=== PATIENT | male | born 1960 | race Hispanic/Latino ===

== ENCOUNTER 2024-02-19 20:13 | Observation (INO) | payer BC, MEDICARE ==
[~2024-02-19] VITALS: Ht 170.2 cm; Wt 111.7 kg
[2024-02-19 21:22] LABS: BASOPHILS # (AUTO) 0.03 K/uL (0.00-0.20); BASOPHILS % (AUTO) 0.4 % (0.0-5.0); EOSINOPHILS # (AUTO) 0.14 K/uL (0.00-0.70); HEMATOCRIT 34.8 % (42-54); IMMATURE GRANULOCYTE ABSOLUTE 0.02 K/uL (0-1); LYMPHOCYTES % (AUTO) 28.4 % (21.0-51.0); MEAN CORPUSCULAR HEMOGLOBIN 26.4 pg (27.0-33.0); MEAN CORPUSCULAR HGB CONC 33.6 g/dL (32.0-36.0); MEAN CORPUSCULAR VOLUME 78.6 fL (79-99); MONOCYTES # (AUTO) 0.7 K/uL (0.1-1.0); MONOCYTES % (AUTO) 9.3 % (3.0-13.0); NEUTROPHILS # (AUTO) 4.2 K/uL (1.8-7.7); NEUTROPHILS % (AUTO) 59.6 % (40.0-77.0); PLATELET COUNT (AUTO) 289 K/uL (130-400); RED BLOOD CELL COUNT(AUTO) 4.43 MIL/uL (4.50-6.20); RED CELL DISTRIBUTION WIDTH 13.5 % (11.0-15.5); WHITE BLOOD COUNT (AUTO) 7.1 K/uL (4.8-10.8)
[2024-02-19] MEDS: LACTATED RINGERS 1000ML 1,000 ML IV SCH (21:23)
[2024-02-19 21:40] LABS: ALBUMIN 3.1 g/dL (3.5-5.0); BILIRUBIN,DIRECT 0.1 mg/dL (0.0-0.3); BILIRUBIN,TOTAL 0.3 mg/dL (0.2-1.0); CREATININE 0.8 mg/dL (0.5-1.3); POTASSIUM 3.2 mmol/L (3.5-5.1); TOTAL PROTEIN, SERUM 6.7 g/dL (6.0-8.3)
[2024-02-19] MEDS ORDERED: IOHEXOL 350 MG/ML 100ML INFUS..BTL IV ONE (21:42)
[2024-02-19] MEDS: HYDROMORPHONE 1 MG INJ IVP PRN (22:25)
[2024-02-20] VITALS (9 sets, daily range): BP systolic 123–141; BP diastolic 63–87; PULSE 56–112; RESP 18–24; O2SAT 98–99
[2024-02-20] MEDS: HYDROMORPHONE 0.5 MG SYG (0.5MG/0.5ML) IVP PRN (01:22)
[2024-02-20] MEDS: LACTATED RINGERS 1000ML 1,000 ML IV SCH (01:24)
[2024-02-20] MEDS ORDERED: POTASSIUM CHLORIDE 20MEQ/100ML 100 ML IV PRN ×2 (01:30→18:00)
[2024-02-20] MEDS ORDERED: ONDANSETRON 4MG INJ IV PRN (01:30)
[2024-02-20] MEDS ORDERED: PANT40TA54 PO (02:42)
[2024-02-20] MEDS ORDERED: DICY20TA2 PO (02:42)
[2024-02-20] MEDS ORDERED: ATOR20TA65 PO (02:42)
[2024-02-20] MEDS ORDERED: ONDA-105 PO (02:42)
[2024-02-20] MEDS: LEVOFLOXACIN 500 MG/D5W 100 ML 100 ML IV SCH (02:51)
[2024-02-20 04:15] LABS: BASOPHILS # (AUTO) 0.01 K/uL (0.00-0.20); BASOPHILS % (AUTO) 0.2 % (0.0-5.0); EOSINOPHILS # (AUTO) 0.11 K/uL (0.00-0.70); EOSINOPHILS % (AUTO) 1.8 % (0.0-8.0); HEMATOCRIT 32.8 % (42-54); IMMATURE GRANULOCYTE ABSOLUTE 0.02 K/uL (0-1); LYMPHOCYTES % (AUTO) 33.1 % (21.0-51.0); MEAN CORPUSCULAR HEMOGLOBIN 26.4 pg (27.0-33.0); MEAN CORPUSCULAR HGB CONC 32.6 g/dL (32.0-36.0); MEAN CORPUSCULAR VOLUME 80.8 fL (79-99); MONOCYTES # (AUTO) 0.6 K/uL (0.1-1.0); NEUTROPHILS # (AUTO) 3.4 K/uL (1.8-7.7); NEUTROPHILS % (AUTO) 54.6 % (40.0-77.0); PLATELET COUNT (AUTO) 264 K/uL (130-400); RED BLOOD CELL COUNT(AUTO) 4.06 MIL/uL (4.50-6.20); RED CELL DISTRIBUTION WIDTH 13.7 % (11.0-15.5); WHITE BLOOD COUNT (AUTO) 6.2 K/uL (4.8-10.8)
[2024-02-20 04:34] LABS: HEMOGLOBIN A1C 6.7 % (4.0-6.0)
[2024-02-20 04:43] LABS: ALBUMIN 2.9 g/dL (3.5-5.0); BILIRUBIN,TOTAL 0.5 mg/dL (0.2-1.0); CREATININE 0.8 mg/dL (0.5-1.3); MAGNESIUM 1.8 mg/dL (1.80-2.40); POTASSIUM 3.6 mmol/L (3.5-5.1); TOTAL PROTEIN, SERUM 6.5 g/dL (6.0-8.3)
[2024-02-20] MEDS: MAGNESIUM 2GM PREMIX 50ML 50 ML IV PRN (05:56)
[2024-02-20] MEDS ORDERED: ONDANSETRON HCL PO PRN (09:00)
[2024-02-20] MEDS ORDERED: PANTOPRAZOLE 40 MG TAB DR PO SCH (09:00)
[2024-02-20] MEDS: DICYCLOMINE HCL 20 MG TAB PO SCH (09:00)
[2024-02-20] MEDS: ATORVASTATIN 20 MG TABLET PO SCH (09:00)
[2024-02-20] MEDS: PANTOPRAZOLE 40 MG/VIAL IVP SCH (09:54)
[2024-02-20] MEDS: POTASSIUM CHLORIDE 10% ELIXIR 20 MEQ/15 ML UDCUP PO PRN (17:47)
[2024-02-20] MEDS ORDERED: KCL 20 MEQ ERTAB PO PRN (18:00)
[2024-02-21 04:11] LABS: BASOPHILS # (AUTO) 0.01 K/uL (0.00-0.20); BASOPHILS % (AUTO) 0.2 % (0.0-5.0); HEMATOCRIT 29.9 % (42-54); IMMATURE GRANULOCYTE ABSOLUTE 0.01 K/uL (0-1); LYMPHOCYTES # (AUTO) 1.8 K/uL (1.0-4.8); LYMPHOCYTES % (AUTO) 37.1 % (21.0-51.0); MEAN CORPUSCULAR HEMOGLOBIN 26.4 pg (27.0-33.0); MEAN CORPUSCULAR HGB CONC 33.1 g/dL (32.0-36.0); MEAN CORPUSCULAR VOLUME 79.7 fL (79-99); MONOCYTES # (AUTO) 0.6 K/uL (0.1-1.0); MONOCYTES % (AUTO) 11.6 % (3.0-13.0); NEUTROPHILS # (AUTO) 2.4 K/uL (1.8-7.7); NEUTROPHILS % (AUTO) 48.9 % (40.0-77.0); PLATELET COUNT (AUTO) 261 K/uL (130-400); RED BLOOD CELL COUNT(AUTO) 3.75 MIL/uL (4.50-6.20); RED CELL DISTRIBUTION WIDTH 13.8 % (11.0-15.5); WHITE BLOOD COUNT (AUTO) 4.9 K/uL (4.8-10.8)
[2024-02-21 04:30] VITALS: BP 117/60; PULSE 59; RESP 18
[2024-02-21 04:38] LABS: ALBUMIN 2.8 g/dL (3.5-5.0); BILIRUBIN,TOTAL 0.3 mg/dL (0.2-1.0); CREATININE 0.9 mg/dL (0.5-1.3); POTASSIUM 3.9 mmol/L (3.5-5.1); TOTAL PROTEIN, SERUM 5.9 g/dL (6.0-8.3)
[2024-02-21 08:24] VITALS: BP 121/67; PULSE 56; RESP 17
[2024-02-21 08:30] VITALS: O2SAT 94
[2024-02-21 10:57] VITALS: BP 149/81; PULSE 66; RESP 16
[2024-02-21] MEDS ORDERED: LEVO-70 PO (11:31)
== END 2024-02-21 15:15 | disposition home or self-care (01) ==
LOC: EDH 20:13 → EDHIP 02-20 01:12 → 4AH 02-20 02:10
PROVIDERS: ADMIT Hospitalist; ATTEND Hospitalist
DX: R10.9 Unspecified abdominal pain (principal); C18.9 Malignant neoplasm of colon, unspecified; C78.7 Secondary malignant neoplasm of liver and intrahepatic bile duct; E66.01 Morbid (severe) obesity due to excess calories; D64.9 Anemia, unspecified; E87.6 Hypokalemia; F17.210 Nicotine dependence, cigarettes, uncomplicated; Z79.899 Other long term (current) drug therapy
CPT/HCPCS: 96375 ×2; 99285; 80076; 80048; 85025 ×3; 36415 ×3; 74177; 96376 ×2; 96361 ×2; 96365; 83036; 83735 ×2; 82330; 80053 ×2; 87040 ×2; 74018; 96366; J1170 ×3; Q9967; G0378 ×38; J3475; J1956 ×2; C9113 ×2

== ENCOUNTER 2024-07-20 19:23 | Emergency (ER) | payer BC, MEDICARE ==
[~2024-07-20] VITALS: Ht 170.2 cm; Wt 101.6 kg
[~2024-07-20 19:23] MED LIST: ATOR20TA65 PO; DICY20TA2 PO; LEVO-70 PO; ONDA-105 PO; PANT40TA54 PO
--- NOTE | 2024-07-20 19:25 | NUR ---
UA CUP PROVIDED
--- NOTE | 2024-07-20 19:32 | NUR ---
COVID AND FLU SWABS COLLECTED AND SENT
--- NOTE | 2024-07-20 19:33 | NUR ---
REPORT TO AYO NASCIMENTO. PT WILL GO TO ROOM 1 , ONCE CLEAN
--- NOTE | 2024-07-20 19:48 | ERN ---
ED Note History of Present Illness Stated Complaint: ABD PAIN Chief Complaint: Abdominal Pain Time Seen by MD: 19:28 Dictation: PATIENT IS A 64-YEAR-OLD MALE COMING IN TODAY WITH NAUSEA WITH DIARRHEA AND ABDOMINAL CRAMPING THROUGHOUT FOR THE LAST THREE DAYS. NO FEVER NO CHILLS NO CHEST PAIN NO BACK PAIN NO SOB. HE STATES HIS ONLY HISTORY SURGICALLY IS OF CHOLECYSTECTOMY. Allergies: Coded Allergies: No Known Allergies (Unverified Allergy, Unknown, 02/19/24) Home Meds Active Scripts Levofloxacin (Levofloxacin) 500 Mg Tablet, 500 MG PO DAILY, #7 TAB Prov:DOLORES FOREMANLISA Hannon MECHANICAL ENGINEERING ADVISOR 02/21/24 Reported Medications Dicyclomine HCl (Bentyl) 20 Mg Tab, 1 TAB PO TID 02/20/24 Pantoprazole Sodium (Pantoprazole Sodium) 40 Mg Tablet.dr, 1 TAB PO DAILY 02/20/24 Ondansetron HCl (Ondansetron HCl) 8 Mg Tablet, 1 TAB PO 12H PRN for NAUSEA 02/20/24 Atorvastatin Calcium (Atorvastatin Calcium) 20 Mg Tablet, 1 TAB PO DAILY 02/20/24 Past Medical History Past Medical History: Other Additional Past Medical Hx: HX OF COLON CA, LIVER CANCER Surgical History: Cholecystectomy, Other PSYCH History: no pertinent psych hx RN Note Reviewed/Agreed w/PFSH: Yes Review of System Dictation CONSTITUTIONAL: NEGATIVE EXCEPT FOR HPI HEAD/FACE: NEGATIVE EXCEPT FOR HPI EENT: NEGATIVE EXCEPT FOR HPI RESPIRATORY: NEGATIVE EXCEPT FOR HPI GASTROINTESTINAL/ABDOMINAL: NEGATIVE EXCEPT FOR HPI DIFFUSE ABDOMINAL PAIN W ITH NAUSEA AND DIARRHEA GENITOURINARY: NEGATIVE EXCEPT FOR HPI MUSCULOSKELETAL: NEGATIVE EXCEPT FOR HPI INTEGUMENTARY: NEGATIVE EXCEPT FOR HPI NEUROLOGICAL/PSYCH: NEGATIVE EXCEPT FOR HPI HEMATOLOGIC/LYMPHATIC: NEGATIVE EXCEPT FOR HPI ALL SYSTEMS NEGATIVE, EXCEPT NOTED ABOVE. 13 POINT REVIEW OF SYSTEMS ASSESSED AND ALL NEGATIVE EXCEPT FOR ABOVE. Initial Vital Sign VS Vital Signs Date Time Temp Pulse Resp B/P (MAP) Pulse Ox O2 Delivery O2 Flow Rate FiO2 07/20/24 19:24 97.9 91 20 129/79 97 Room Air 07/20/24 19:56 0 21 Physical Exam Dictation VITAL SIGNS REVIEWED GENERAL APPEARANCE: ALERT, ORIENTED X 3, MILD ACUTE DISTRESS, WELL DEVELOPED, NOURISHED. OBESE HEAD AND FACE: NON-TRAUMATIC. EYES: PERRL, PINK CONJUNCTIVAS, EYELID NO TRAUMA, ANTERIOR CHAMBER WITH ARCUS SENILIS. EARS: PINNAS INTACT AND NO SIGNS OF TRAUMA OR ERYTHEMA EAR CANALS CLEAR AND NO DISCHARGE TM NO ERYTHEMA NOSE: NO DISCHARGE, NO BLEEDING. OROPHARYNX: MOUTH NORMAL, TONGUE PINK, PHARYNX CLEAR,NO ERYTHEMA, TONSILS NO EXUDATES, NO ABSCESSES NOTED, MUCOUS MEMBRANE MOIST NECK: SUPPLE, NON-TENDER, NO THYROMEGALY, NO MASSES, NO JVD, NO BRUITS BREAST:DEFERRED CHEST:NO TENDERNESS, NO CREPITUS, NO PARADOXICAL MOVEMENT, NO RETRACTIONS LUNGS:CLEAR, WELL-VENTILATED, SYMMETRIC, NO RALES, NO WHEEZING, NO RHONCHI, NO STRIDOR, GOOD BREATH SOUNDS BILATERALLY HEART: REGULAR RATE, REGULAR RHYTHM, NO MURMUR, NO GALLOPS VASCULAR: NO PERIPHERAL EDEMA, ABDOMEN: SOFT, POSITIVE BOWEL SOUNDS, NONDISTENDED, NO GUARDING, NONTENDER, NO REBOUND, NO MASSES NO HEPATOMEGALY, NO SPLENOMEGALY, NO LITTLE'S SIGN, NO HERNIAS. NO FOCAL TENDERNESS RECTAL: DEFERRED GENITAL: DEFERRED NEUROLOGICAL: NORMAL SPEECH, MOTOR FUNCTION INTACT, SENSORY FUNCTION INTACT MUSCULOSKELETAL: NECK NONTENDER, FULL RANGE OF MOTION, BACK NONTENDER, FULL RAN GE OF MOTION, EXTREMITIES: NONTENDER, FULL RANGE OF MOTION SKIN: COLOR PINK, DRY, NO TURGOR, NO RASH, NO LACERATIONS, NO ABRASIONS, NO CONTUSIONS. LYMPHATIC: DEFERRED Results (Laboratory/Radiology) Laboratory/Radiology Laboratory Tests Test 07/20/24 19:33 07/20/24 19:53 Influenza Type A Antigen Negative For Type A Influenza Type B Antigen Negative For Type B SARS-CoV-2, RNA, NAAT NEGATIVE SARS CoV-2 White Blood Count 4.0 K/uL (4.8-10.8) L Red Blood Count 4.66 MIL/uL (4.50-6.20) Hemoglobin 13.3 g/dL (14.0-18.0) L Hematocrit 40.0 % (42-54) L Mean Corpuscular Volume 85.8 fL (79-99) Mean Corpuscular Hemoglobin 28.5 pg (27.0-33.0) Mean Corpuscular Hemoglobin Concent 33.3 g/dL (32.0-36.0) Red Cell Distribution Width 17.0 % (11.0-15.5) H Platelet Count 199 K/uL (130-400) Mean Platelet Volume 9.5 fL (7.5-10.5) Immature Granulocyte % (Auto) 0.5 % (0-1) Neutrophils (%) (Auto) 51.9 % (40.0-77.0) Lymphocytes (%) (Auto) 37.4 % (21.0-51.0) Monocytes (%) (Auto) 5.7 % (3.0-13.0) Eosinophils (%) (Auto) 4.0 % (0.0-8.0) Basophils (%) (Auto) 0.5 % (0.0-5.0) Neutrophils # (Auto) 2.1 K/uL (1.8-7.7) Lymphocytes # (Auto) 1.5 K/uL (1.0-4.8) Monocytes # (Auto) 0.2 K/uL (0.1-1.0) Eosinophils # (Auto) 0.16 K/uL (0.00-0.70) Basophils # (Auto) 0.02 K/uL (0.00-0.20) Absolute Immature Granulocyte (auto 0.02 K/uL (0-1) Nucleated Red Blood Cells 0.0 % (0.0-0.19) Urine Color YELLOW (YELLOW) Urine Appearance CLEAR (CLEAR) Urine pH 6.0 (5.0-8.0) Urine Specific [place] 1.036 (1.001-1.031) Urine Protein 50 mg/dL (NEGATIVE) H Urine Glucose (UA) NEGATIVE mg/dL (NEGATIVE) Urine Ketones 5 mg/dL (NEGATIVE) H Urine Occult Blood NEGATIVE (NEGATIVE) Urine Nitrate NEGATIVE (NEGATIVE) Urine Bilirubin 0.5 mg/dL (NEGATIVE) H Urine Urobilinogen 3 mg/dL (0.2-1.0) H Urine Leukocyte Esterase NEGATIVE [place]ita/uL Sodium Level 141 mmol/L (136-145) Potassium Level 3.9 mmol/L (3.5-5.1) Chloride Level 104 mmol/L (101-111) Carbon Dioxide Level 27 mmol/L (21-32) Blood Urea Nitrogen 12 mg/dL (7-18) Creatinine 0.9 mg/dL (0.5-1.3) Glomerular Filtration Rate Calc 95 mL/min (>90) Random Glucose 103 mg/dL (70-105) Total Calcium 8.7 mg/dL (8.5-10.1) Magnesium Level 1.70 mg/dL (1.80-2.40) L Total Bilirubin 0.7 mg/dL (0.2-1.0) Direct Bilirubin 0.2 mg/dL (0.0-0.3) Aspartate Amino Transf (AST/SGOT) 28 U/L (10-37) Alanine Aminotransferase (ALT/SGPT) 30 U/L (12-78) Alkaline Phosphatase 103 U/L (50-136) Total Protein 7.2 g/dL (6.0-8.3) Albumin 3.3 g/dL (3.5-5.0) L Lipase 25 U/L (16-77) Labs Reviewed?: Yes ED Course ED Course Orders Procedure Category Date Status Time Cbc With Differential LAB 07/20/24 Complete 19:30 Basic Metabolic Panel LAB 07/20/24 Complete 19:30 Covid Rna Naat LAB 07/20/24 Complete 19:30 Influenza Type A & B, LAB 07/20/24 Complete Rapid 19:30 Magnesium LAB 07/20/24 Complete 19:30 Chest 1vw RAD 07/20/24 Resulted 19:30 Urinalysis Profile LAB 07/20/24 In Process 19:30 Lipase LAB 07/20/24 Complete 19:31 Hepatic Function Panel LAB 07/20/24 Complete 19:31 0.9%Nacl 1000ml (Ns PHA 07/20/24 Complete 1000ml) 20:00 Morphine 2mg Syg PHA 07/20/24 Complete (Morphine 2mg Syg) 20:00 Ondansetron 4mg Inj PHA 07/20/24 Complete (Zofran 4mg Inj) 20:00 Dicyclomine Hcl PHA 07/20/24 Verified (Bentyl 20mg Tab) 21:30 Current Medications Medications (Trade) Dose Ordered Sig/Dai Route PRN Reason Start Time Stop Time Status Last Admin Dose Admin Morphine Sulfate (morPHINE 2MG SYG) 2 mg ONCE ONCE IVP 07/20/24 20:00 07/20/24 20:01 DC 07/20/24 20:01 Ondansetron HCl (zoFRAN 4MG INJ) 4 mg ONCE ONCE IVP 07/20/24 20:00 07/20/24 20:01 DC 07/20/24 20:01 Sodium Chloride 1,000 ml @ 0 mls/hr ONCE ONCE IV 07/20/24 20:00 07/20/24 20:01 DC 07/20/24 20:01 Vital Signs Date Time Temp Pulse Resp B/P (MAP) Pulse Ox O2 Delivery O2 Flow Rate FiO2 07/20/24 19:56 98.8 87 18 149/88 98 Room Air* 0 21 07/20/24 19:24 97.9 91 20 129/79 97 Room Air 09/22/2024, PAIN IS MARKEDLY REDUCED PATIENT STATES HE IS READY TO GO HOME. WE WILL BE DISCHARGING PATIENT HOME WITH ACUTE DIARRHEA MILD DEHYDRATION TOLD TO SEE HIS PRIMARY CARE DOCTOR IN ONE TWO DAYS WE WILL BE PRESCRIBED BENTYL. Medical Decision Making MDM MDM: DIFFERENTIAL DIAGNOSIS: GASTRITIS VERSUS GASTROENTERITIS/DIARRHEA/NAUSEA/VOMITING/ELECTROLYTE IMBALANCE/DEHYDRATION/ RATIONALE: TESTS CONSIDERED AND ORDERED SECONDARY TO SHARED DECISION MAKING INCLUDE: LABS/ PREVIOUS OUTSIDE RECORDS REVIEWED: OLD ER VISITS. REVIEWED RISK OF COMPLICATION AND/OR MORBIDITY OR MORTALITY OF PATIENT MANAGEMENT: NONE MEDICATIONS-PER MEDICATION RECONCILIATION SEE NURSE'S NOTES NEED FOR HOSPITALIZATION: PATIENT DOES NOT MEET CRITERIA FOR HOSPITALIZATION. NO THERE ARE NO SOCIAL CONCERNS WITH THIS PATIENT. PRESCRIPTION DRUG MANAGEMENT OMEPRAZOLE/BENTYL PRESCRIPTIONS WILL INCLUDE SYMPTOMATIC CARE PATIENT'S PRIOR EXTERNAL MEDICAL RECORDS FROM OTHER ER VISITS WERE REVIEWED BY ME INDICATED. PRIOR TESTING AND RESULTS FROM PREVIOUS VISITS WERE REVIEWED. PRIOR TESTS WERE TAKEN INTO ACCOUNT WITH MEDICAL DECISION MAKING AND RESOURCE UTILIZATION, INDEPENDENT HISTORIAN/HISTORIANS WERE USED TO OBTAIN COMPLETE MEDICAL HISTORY. I INDEPENDENTLY INTERPRETED THE TEST THAT WERE PERFORMED, RESULTS WERE REVIEWED BY ME AND CONSIDERED FINDINGS ON RADIOLOGY IF ORDERED. MEDICAL MANAGEMENT AND EXAMINATION INTERPRETATION DISCUSSIONS WERE HAD BY ME WITH OTHER QUALIFIED HEALTHCARE PROFESSIONALS INDICATED FOR THE PATIENT'S CARE. DX & DISP Disposition: Discharge Departure Impression: Primary Impression: Food poisoning Additional Impressions: Diarrhea, Nausea Condition: Stable Scripts Dicyclomine HCl (Bentyl) 20 Mg Tab 20 MG PO Q6HPRN PRN for ABDOMINAL PAIN /CRAMPING, #20 TAB Prov: MIGUEL ROMERO TC OPERATOR 07/20/24 Omeprazole (Omeprazole) 40 Mg Capsule. 1 CAP PO DAILY for 30 Days, #30 CAP 0 Refills Prov: MIGUEL ROMERO TC OPERATOR 07/20/24 Additional Instructions: FOLLOW-UP WITH PRIMARY CARE PROVIDER IN 1 TO 2 DAYS. TAKE MEDICATIONS DIRECTED HERE IN THE EMERGENCY ROOM. OKAY TO CONTINUE HOME MEDICATIONS UNLESS OTHERWISE DISCUSSED DURING YOUR VISIT IN THE EMERGENCY ROOM TODAY. RETURN TO YOUR NEAREST EMERGENCY ROOM IF SYMPTOMS WORSEN OR IF THERE IS NO IMPROVEMENT. CALL 911 IF YOU NEED IMMEDIATE ASSISTANCE. TAKE TYLENOL OR MOTRIN O [id number] NEEDED AND IF NO CONTRAINDICATIONS ARE PRESENT. INCREASE ORAL HYDRATION. A WOUND CULTURE OR URINE CULTURE WAS ORDERED HERE IN THE EMERGENCY ROOM DEPARTMENT PLEASE FOLLOW-UP WITH PRIMARY CARE PROVIDER AND ADVISE THEM TO GET REPEAT PORTS FROM OUR FACILITY. IF YOU HAD ANY WIL WRAP/SPLINTS THAT WERE APPLIED HERE, PLEASE DO NOT REMOVE THEM UNTIL YOU SEE YOUR PRIMARY CARE OR SPECIALTY. CLEAR LIQUID DIET FOR THE NEXT18 HOURS AND THEN ADVANCE DIET SLOWLY TO REGULAR. TAKE BENTYL DIRECTED FOR ABDOMINAL CRAMPING, SEE YOUR PRIMARY CARE DOCTOR FOR FOLLOW UP AND MANAGEMENT. Referrals: SELF,REFERRAL (PCP) Time of Disposition: 21:26 I have reviewed the case, and I agree with, Diagnosis and Plan MIGUEL ROMERO TC OPERATOR Jul 20, 2024 19:48
[2024-07-20 19:57] LABS: SARS-CoV-2, RNA, NAAT NEGATIVE SARS CoV-2 (NEGATIVE)
[2024-07-20 20:00] LABS: INFLUENZA TYPE A Negative For Type A (NEGATIVE); INFLUENZA TYPE B Negative For Type B (NEGATIVE)
[2024-07-20] MEDS: ondanSETRON 4MG INJ IVP ONE (20:01)
[2024-07-20] MEDS: 0.9%NACL 1000ML 1,000 ML IV ONE (20:01)
[2024-07-20] MEDS: morPHINE 2 MG SYG IVP ONE (20:01)
[2024-07-20 20:03] LABS: BASOPHILS # (AUTO) 0.02 K/uL (0.00-0.20); BASOPHILS % (AUTO) 0.5 % (0.0-5.0); EOSINOPHILS # (AUTO) 0.16 K/uL (0.00-0.70); IMMATURE GRANULOCYTE ABSOLUTE 0.02 K/uL (0-1); LYMPHOCYTES # (AUTO) 1.5 K/uL (1.0-4.8); LYMPHOCYTES % (AUTO) 37.4 % (21.0-51.0); MEAN CORPUSCULAR HEMOGLOBIN 28.5 pg (27.0-33.0); MEAN CORPUSCULAR HGB CONC 33.3 g/dL (32.0-36.0); MEAN CORPUSCULAR VOLUME 85.8 fL (79-99); MONOCYTES # (AUTO) 0.2 K/uL (0.1-1.0); MONOCYTES % (AUTO) 5.7 % (3.0-13.0); NEUTROPHILS # (AUTO) 2.1 K/uL (1.8-7.7); NEUTROPHILS % (AUTO) 51.9 % (40.0-77.0); PLATELET COUNT (AUTO) 199 K/uL (130-400); RED BLOOD CELL COUNT(AUTO) 4.66 MIL/uL (4.50-6.20)
[2024-07-20 20:16] LABS: MAGNESIUM 1.7 mg/dL (1.80-2.40)
[2024-07-20 20:17] LABS: CREATININE 0.9 mg/dL (0.5-1.3); POTASSIUM 3.9 mmol/L (3.5-5.1)
[2024-07-20 20:28] LABS: APPEARANCE,URINE CLEAR (CLEAR); BILIRUBIN,URINE 0.5 mg/dL (NEGATIVE); COLOR,URINE YELLOW (YELLOW); GLUCOSE, URINE (UA) NEGATIVE (NEGATIVE); KETONES,URINE 5 mg/dL (NEGATIVE); LEUKOCYTE ESTERASE ,URINE NEGATIVE Leu/uL (NEGATIVE); NITRATE,URINE NEGATIVE (NEGATIVE); OCCULT BLOOD,URINE NEGATIVE (NEGATIVE); PROTEIN,URINE 50 mg/dL (NEGATIVE); UROBILINOGEN,URINE 3 mg/dL (0.2-1.0)
[2024-07-20 20:30] LABS: ADD UA MICROSCOPIC YES
--- NOTE | 2024-07-20 20:33 | HMCIMG ---
CHEST 1VW CLINICAL HISTORY: ABD PAIN COMPARISON: None TECHNIQUE: Single view of the chest was obtained. FINDINGS: Lungs are clear. The cardiac size and mediastinum are unremarkable. The bony structures are within normal limits. There is a right chest port with tip in the cavoatrial junction. IMPRESSION: No acute cardiopulmonary process identified.
[2024-07-20 21:13] LABS: ALBUMIN 3.3 g/dL (3.5-5.0); BILIRUBIN,DIRECT 0.2 mg/dL (0.0-0.3); BILIRUBIN,TOTAL 0.7 mg/dL (0.2-1.0); TOTAL PROTEIN, SERUM 7.2 g/dL (6.0-8.3)
[2024-07-20 21:27] LABS: MUCUS,URINE MANY LPF (None Seen); SQUAMOUS EPITHELIAL CELL,UR RARE /HPF (0-2)
[2024-07-20] MEDS ORDERED: OMEP40CA21 PO (21:27)
[2024-07-20] MEDS ORDERED: DICY20TA2 PO (21:27)
[2024-07-20] MEDS: DICYCLOMINE HCL 20 MG TAB PO ONE (21:29)
[2024-07-20 21:31] VITALS: BP 112/65; PULSE 87; RESP 18; TEMP 98.1; O2SAT 98
== END 2024-07-20 21:43 | disposition home or self-care (01) ==
LOC: EDH 19:23
DX: A05.9 Bacterial foodborne intoxication, unspecified (principal); Z20.822 Contact with and (suspected) exposure to COVID-19; Z79.899 Other long term (current) drug therapy; Z90.49 Acquired absence of other specified parts of digestive tract; Z98.890 Other specified postprocedural states
CPT/HCPCS: 99284; 96374; 71045; 87635; 96361; 96375; 80076; 83735; 80048; 83690; 85025; 87804 ×2; 81001; 36415; J2270; J7030; J2405

== ENCOUNTER 2025-05-26 21:47 | Emergency (ER) | payer BC, OTHER ==
[~2025-05-26] VITALS: Ht 170.2 cm; Wt 88.9 kg
[~2025-05-26 21:47] MED LIST changes: +OMEP40CA21 PO
--- NOTE | 2025-05-26 23:05 | ERN ---
ED Note History of Present Illness Stated Complaint: C/O RECTAL PAIN Chief Complaint: Rectal Bleed Time Seen by MD: 21:59 Time Seen by Midlevel: 21:59 Dictation: The patient is a 64-year-old male with a history of colorectal cancer stage IV who presents to the emergency department with complaints of rectal pain. Patient reports he had Rectal surgery in December at [facility] and he has been having problems with uncontrolled bowel movements. Patient reports that he had a little bit of bright red blood when he wiped but denies any blood in stools. Patient denies any abdominal pain, denies any nausea or vomiting, denies any fevers. Reports he saw his primary doctor on Sunday and they started him on some medication to help with the bowel movements and clobetasol cream. Allergies: Coded Allergies: No Known Allergies (Unverified Allergy, Unknown, 02/19/24) Home Meds Active Scripts Dicyclomine HCl (Bentyl) 20 Mg Tab, 20 MG PO Q6HPRN PRN for ABDOMINAL PAIN /CRAMPING, #20 TAB Prov:MIGUEL ROMERO NP 07/20/24 Omeprazole (Omeprazole) 40 Mg Capsule.dr, 1 CAP PO DAILY for 30 Days, #30 CAP 0 Refills Prov:MIGUEL ROMERO NP 07/20/24 Levofloxacin (Levofloxacin) 500 Mg Tablet, 500 MG PO DAILY, #7 TAB Prov:JAN FOREMAN CORPORATE TECHNICAL RECRUITER 02/21/24 Reported Medications Dicyclomine HCl (Bentyl) 20 Mg Tab, 1 TAB PO TID 02/20/24 Pantoprazole Sodium (Pantoprazole Sodium) 40 Mg Tablet.dr, 1 TAB PO DAILY 02/20/24 Ondansetron HCl (Ondansetron HCl) 8 Mg Tablet, 1 TAB PO 12H PRN for NAUSEA 02/20/24 Atorvastatin Calcium (Atorvastatin Calcium) 20 Mg Tablet, 1 TAB PO DAILY 02/20/24 Past Medical History Past Medical History: Other Additional Past Medical Hx: COLON CA Surgical History: Other Surgical History Other: COLON RESECTION RN Note Reviewed/Agreed w/PFSH: Yes Review of System Dictation Constitutional: Negative for fever,chills, and weight loss Eyes: Negative for injury, pain,redness, and discharge ENT: Negative for injury,pain or swelling Cardiovascular: Negative for chest pain, palpitations, and edema Respiratory: Negative for shortness of breath, cough, and wheezing, Abdomen/GI: Negative for abdominal pain, nausea, vomiting, diarrhea, and constipation Back: Negative for injury and pain : Positive for rectal pain MS/Extremity: Negative for injury and deformity Skin: Negative for rash, and discoloration Neuro: Negative for headache, weakness, numbness, tingling, and seizure Psych: Negative for suicide ideation, homicidal ideation, and hallucinations Initial Vital Sign VS Vital Signs Date Time Temp Pulse Resp B/P (MAP) Pulse Ox O2 Delivery O2 Flow Rate FiO2 05/26/25 21:51 97.5 83 20 130/73 97 Room Air Physical Exam Dictation Vital Signs reviewed General Appearance: Alert, oriented x 3, no acute distress, well developed, nourished. Head and Face: non-traumatic. Eyes: PERRL, pink conjunctivas, eyelid no trauma, anterior chamber with arcus senilis. Ears: Pinnas intact and no signs of trauma or erythema ear canals clear and no discharge TM no erythema Nose: No discharge, no bleeding. Oropharynx: Mouth normal, tongue pink. pharynx clear,no erythema, tonsils no exudates, no abscesses noted, mucous membrane moist Neck: Supple, non-tender, no thyromegaly, no masses, no JVD, no bruits Breast:Deferred Chest:No tenderness, no crepitus, no paradoxical movement, no retractions Lungs:Clear, well-ventilated, symmetric, no rales, no wheezing, no rhonchi, no stridor, good breath sounds bilaterally Heart: Regular rate, regular rhythm, no murmur, no gallops Vascular: no peripheral edema, Abdomen: Soft, positive bowel sounds, nondistended, no guarding, nontender, no rebound, no masses no hepatomegaly, no splenomegaly, no Escobar's sign, no hernias. Rectal: Excoriation to buttocks, no wounds, no active bleeding Genital: Deferred Neurological: Normal speech, motor function intact, sensory function intact Musculoskeletal: Neck nontender, full range of motion, back nontender, full range of motion, Extremities: nontender, full range of motion Skin: Color pink, dry, no turgor, no rash, no lacerations, no abrasions, no contusions. Lymphatic: Deferred Results (Laboratory/Radiology) Laboratory/Radiology Laboratory Tests Test 05/26/25 23:06 White Blood Count 7.6 K/uL (4.8-10.8) Red Blood Count 4.34 MIL/uL (4.50-6.20) L Hemoglobin 12.2 g/dL (14.0-18.0) L Hematocrit 36.0 % (42-54) L Mean Corpuscular Volume 82.9 fL (79-99) Mean Corpuscular Hemoglobin 28.1 pg (27.0-33.0) Mean Corpuscular Hemoglobin Concent 33.9 g/dL (32.0-36.0) Red Cell Distribution Width 13.7 % (11.0-15.5) Platelet Count 268 K/uL (130-400) Mean Platelet Volume 9.0 fL (7.5-10.5) Immature Granulocyte % (Auto) 0.5 % (0-1) Neutrophils (%) (Auto) 86.8 % (40.0-77.0) H Lymphocytes (%) (Auto) 7.8 % (21.0-51.0) L Monocytes (%) (Auto) 4.6 % (3.0-13.0) Eosinophils (%) (Auto) 0.0 % (0.0-8.0) Basophils (%) (Auto) 0.3 % (0.0-5.0) Neutrophils # (Auto) 6.6 K/uL (1.8-7.7) Lymphocytes # (Auto) 0.6 K/uL (1.0-4.8) L Monocytes # (Auto) 0.4 K/uL (0.1-1.0) Eosinophils # (Auto) 0.00 K/uL (0.00-0.70) Basophils # (Auto) 0.02 K/uL (0.00-0.20) Absolute Immature Granulocyte (auto 0.04 K/uL (0-1) Nucleated Red Blood Cells 0.0 % (0.0-0.19) White Cell Morphology Comment See comments Sodium Level 136 mmol/L (136-145) Potassium Level 3.8 mmol/L (3.5-5.1) Chloride Level 102 mmol/L (101-111) Carbon Dioxide Level 26 mmol/L (21-32) Blood Urea Nitrogen 13 mg/dL (7-18) Creatinine 0.8 mg/dL (0.5-1.3) Glomerular Filtration Rate Calc 99 mL/min (>90) Random Glucose 140 mg/dL (70-105) H Total Calcium 9.5 mg/dL (8.5-10.1) Labs Reviewed?: Yes ED Course ED Course Orders Procedure Category Date Status Time Cbc With Differential LAB 05/26/25 Complete 22:10 Basic Metabolic Panel LAB 05/26/25 Complete 22:10 Morphine 2mg Syg PHA 05/26/25 Complete (Morphine 2mg Syg) 22:30 Morphine 4mg Syg PHA 05/27/25 Complete (Morphine 4mg Syg) 00:00 0.9% Nacl 500ml PHA 05/27/25 Complete Iv.Soln (Ns 500ml 00:30 Current Medications Medications (Trade) Dose Ordered Sig/Dai Route PRN Reason Start Time Stop Time Status Last Admin Dose Admin Morphine Sulfate (morPHINE 2MG SYG) 2 mg ONCE ONCE IVP 05/26/25 22:30 05/26/25 23:41 DC Morphine Sulfate (morPHINE 4MG SYG) 2 mg ONCE ONCE IVP 05/27/25 00:00 05/27/25 00:01 DC 05/26/25 23:58 Sodium Chloride 500 ml @ 0 mls/hr ONCE ONCE IV 05/27/25 00:30 05/27/25 00:31 DC 05/27/25 00:34 Vital Signs Date Time Temp Pulse Resp B/P (MAP) Pulse Ox O2 Delivery O2 Flow Rate FiO2 05/26/25 21:51 97.5 83 20 130/73 97 Room Air Medical Decision Making MDM The patient is a 64-year-old male with a history of colorectal cancer stage IV who presents to the emergency department with complaints of rectal pain. Patient reports he had Rectal surgery in December at [facility] and he has been having problems with uncontrolled bowel movements. Patient reports that he had a little bit of bright red blood when he wiped but denies any blood in stools. Patient denies any abdominal pain, denies any nausea or vomiting, denies any fevers. Reports he saw his primary doctor on Sunday and they started him on some medication to help with the bowel movements and clobetasol cream. CBC showed no leukocytosis mild normocytic anemia, chemistry chemistry showed no electrolyte imbalance, normal renal function. On physical exam patient appears to have excoriation to buttocks, no active bleeding, stools are brown. Patient already receiving treatment by his specialists. Patient instructed to continue treatment. On physical exam patient is in no acute distress, nontoxic appearance. Patient reports he has not an appointment next week at his sp ecialists. Differential diagnosis: Anemia, rectal pain, dehydration Need for hospitalization: Patient does not meet criteria for hospitalization. There are no social concerns with this patient. DX & DISP Disposition: Discharge Departure Impression: Primary Impression: Rectal pain Additional Impression: Dermatitis Condition: Stable Scripts Acetaminophen with Codeine (Acetaminophen-Cod #3 Tablet) 300 Mg-30 Mg Tablet 1 TAB PO Q6HPRN PRN for pain for 3 Days, #10 TAB 0 Refills Prov: TANISHA BARNHART 05/27/25 Additional Instructions: Please follow up with your primary doctor in 1-2 days. Follow up with the your specialist. Take your medications as prescribed. Continue taking your ointment prescribed by your primary doctor. Allow area to be open to air. If anything worsens please return to ER. FOLLOW-UP WITH PRIMARY CARE PROVIDER IN 1 TO 2 DAYS. TAKE MEDICATIONS DIRECTED HERE IN THE EMERGENCY ROOM. OKAY TO CONTINUE HOME MEDICATIONS UNLESS OTHERWISE DISCUSSED DURING YOUR VISIT IN THE EMERGENCY ROOM TODAY. RETURN TO YOUR NEAREST EMERGENCY ROOM IF SYMPTOMS WORSEN OR IF THERE IS NO IMPROVEMENT. CALL 911 IF YOU NEED IMMEDIATE ASSISTANCE. TAKE TYLENOL [id number] NEEDED AND IF NO CONTRAINDICATIONS ARE PRESENT. INCREASE ORAL HYDRATION. A WOUND CULTURE OR URINE CULTURE WAS ORDERED HERE IN THE EMERGENCY ROOM DEPARTMENT PLEASE FOLLOW-UP WITH PRIMARY CARE PROVIDER AND ADVISE THEM TO GET REPEAT PORTS FROM OUR FACILITY. IF YOU HAD ANY WIL WRAP/SPLINTS THAT WERE APPLIED HERE, PLEASE DO NOT REMOVE THEM UNTIL YOU SEE YOUR PRIMARY CARE OR SPECIALTY. Referrals: SEVERIANO QUEZADA M.D. (PCP) Time of Disposition: 00:37 I have reviewed the case, and I agree with, Diagnosis and Plan TANISHA BARNHART May 26, 2025 23:05
[2025-05-26 23:21] LABS: IMMATURE GRANULOCYTE ABSOLUTE 0.04 K/uL (0-1); NUCLEATED RED BLOOD CELLS 0.0 % (0.0-0.19); PLATELET COUNT (AUTO) 268 K/uL (130-400); RED BLOOD CELL COUNT(AUTO) 4.34 MIL/uL (4.50-6.20); RED CELL DISTRIBUTION WIDTH 13.7 % (11.0-15.5); WHITE BLOOD COUNT (AUTO) 7.6 K/uL (4.8-10.8)
[2025-05-26 23:25] LABS: CREATININE 0.8 mg/dL (0.5-1.3); GLOMERULAR FILTR. RATE CALC 99.0 mL/min (>90); GLUCOSE,RANDOM 140.0 mg/dL (70-105); SODIUM SERUM 136.0 mmol/L (136-145); UREA NITROGEN, BLOOD 13.0 mg/dL (7-18)
[2025-05-27] MEDS: 0.9% NACL 500ML IV.SOLN 500 ML IV ONE (00:34)
[2025-05-27] MEDS ORDERED: ACET-2079 PO (00:39)
[2025-05-27 00:44] VITALS: BP 128/58; PULSE 56; RESP 17; TEMP 98.3; O2SAT 98
== END 2025-05-27 01:17 | disposition home or self-care (01) ==
LOC: EDH 21:47
DX: K62.89 Other specified diseases of anus and rectum (principal); L30.9 Dermatitis, unspecified; Z79.899 Other long term (current) drug therapy; Z85.038 Personal history of other malignant neoplasm of large intestine
CPT/HCPCS: 99284; 96374; 80048; 85025; 36415; 96361; J2270; J7040